=== PATIENT | male | born 1970 | race Caucasian/White ===

== ENCOUNTER 2023-02-28 01:10 | Emergency (ER) | payer MEDICAID ==
[~2023-02-28] VITALS: Ht 175.3 cm; Wt 70.0 kg
[2023-02-28 01:15] VITALS: BP 129/86; PULSE 88; RESP 16; TEMP 98.2; O2SAT 100
== END 2023-02-28 06:43 | disposition home or self-care (01) ==
LOC: ER 01:21
DX: S09.90XA Unspecified injury of head, initial encounter (principal); Y04.0XXA Assault by unarmed brawl or fight, initial encounter; Y93.89 Activity, other specified; Y92.89 Other specified places as the place of occurrence of the external cause; Y99.8 Other external cause status
CPT/HCPCS: 99284